=== PATIENT | male | born 1990 | race African-American/Black ===

== ENCOUNTER 2017-02-22 16:29 | Emergency (ER) | payer OTHER ==
[~2017-02-22] VITALS: Ht 193 cm; Wt 106.3 kg
[2017-02-22] MEDS ORDERED: IBUPROFEN 800 MG TABLET PO ONE (18:45)
[2017-02-22 19:05] VITALS: BP 127/75
== END 2017-02-22 19:16 | disposition home or self-care (01) ==
LOC: EMS 16:33
DX: S60.221A Contusion of right hand, initial encounter (principal); F17.210 Nicotine dependence, cigarettes, uncomplicated; W22.8XXA Striking against or struck by other objects, initial encounter; Y93.89 Activity, other specified; Y92.89 Other specified places as the place of occurrence of the external cause; Y99.8 Other external cause status
CPT/HCPCS: 99284